=== PATIENT | male | born 1955 | race Two or more races ===

== ENCOUNTER 2019-04-13 11:10 | Outpatient (CLI) | payer OTHER ==
[~2019-04-13 11:10] MED LIST: NABUMETONE500 MG PO; PERCOCET 5/3251 TAB PO
== END 2019-04-13 11:22 | disposition home or self-care (01) ==
LOC: SONOGRAMA 11:10 → MAMO-SONO 11:15 → SONOGRAMA 11:22
DX: M76.02 Gluteal tendinitis, left hip (principal)

== ENCOUNTER 2023-06-01 08:44 | Outpatient (CLI) | payer OTHER | END 2023-06-01 09:06 | disposition home or self-care (01) | LOC: RAD 08:44 | PROVIDERS: ATTEND Family Medicine | DX: M79.671 Pain in right foot (principal) ==

== ENCOUNTER 2024-08-03 07:38 | Outpatient (CLI) | payer OTHER | END 2024-08-03 07:42 | disposition home or self-care (01) | LOC: NUCLEAR 07:38 | PROVIDERS: ATTEND Family Medicine | DX: M79.604 Pain in right leg (principal) ==

== ENCOUNTER 2024-08-04 07:13 | Outpatient (CLI) | payer OTHER | END 2024-08-04 07:19 | disposition home or self-care (01) | LOC: NUCLEAR 07:13 | PROVIDERS: ATTEND Family Medicine | DX: M79.604 Pain in right leg (principal) ==

== ENCOUNTER 2024-08-15 12:53 | Outpatient (CLI) | payer OTHER | END 2024-08-15 14:01 | disposition home or self-care (01) | LOC: NUCLEAR 12:53 | PROVIDERS: ATTEND Family Medicine | DX: M81.0 Age-related osteoporosis without current pathological fracture (principal) ==